=== PATIENT | male | born 1930 | race African-American/Black ===

== ENCOUNTER 2017-09-13 05:36 | Day surgery (SDC) | payer MEDICARE, BC ==
[~2017-09-13] VITALS: Ht 167.6 cm; Wt 59.4 kg
[~2017-09-13 05:36] MED LIST: ALLO100T PO; AMLO10TA4 PO; ASPI-1158 PO; ATOR80TA PO; BUPR100T4 PO; DOCU-138 PO; FERR256T PO; HYDR-4134 PO; LEUP22.52 IM; VALS320T2 PO
[2017-09-13 06:29] LABS: BASOPHILS % 1.2 % (0.0-2.0); EOSINOPHILS % 2.3 % (0.0-5.0); HEMOGLOBIN. 8.4 g/dL (14.0-18.0); MEAN CORPUSCULAR HEMOGLOBIN 25.6 pg (28.0-32.0); MEAN CORPUSCULAR VOLUME 79.2 fL (80.0-94.0); MEAN PLATELET VOLUME 8.1 fl (7.4-10.4); MONOCYTES % 11.9 % (2.0-8.0); NEUTROPHILS % 58.6 % (40.0-76.0); PLATELET 135 x1000/uL (130-400); RED BLOOD CELL COUNT 3.28 mill/uL (4.7-6.1); RED CELL DISTRIBUTION WIDTH 14.5 % (11.6-14.6)
[2017-09-13] MEDS ORDERED: SODIUM CHLORIDE 0.9% 1,000 ML IV SCH (06:30)
[2017-09-13 06:37] LABS: INR 1.1; PARTIAL THROMBOPLASTIN TIME 25.8 sec (23.4-31.0); PROTHROMBIN TIME 11.2 sec (9.4-11.6)
[2017-09-13 06:42] LABS: CLARITY URINE CLEAR (CLEAR); COLOR URINE YELLOW (YELLOW); KETONES URINE TRACE (NEGATIVE); LEUKOCYTE ESTERASE URINE 1+ (NEGATIVE); NITRITE URINE NEGATIVE (NEGATIVE); OCCULT BLOOD URINE NEGATIVE (NEGATIVE); PROTEIN URINE 2+ (NEGATIVE); SPECIFIC GRAVITY URINE 1.015 (1.005-1.030); UROBILINOGEN URINE 0.2 E.U./dL (0.2-1.0)
[2017-09-13] MEDS ORDERED: BUPIVACAINE HCL/PF 0.5% (5MG/ML) 10ML ONE (07:11)
[2017-09-13] MEDS ORDERED: SKIN ADHESIVE 0.7 GM EA TOP ONE (07:11)
[2017-09-13] MEDS ORDERED: DONE5TAB33 PO (07:27)
[2017-09-13] MEDS ORDERED: COLC0.6C3 PO (07:27)
[2017-09-13] MEDS ORDERED: ZINC50TA37 PO (07:27)
[2017-09-13] MEDS ORDERED: DOXA2TAB2 PO (07:27)
[2017-09-13] MEDS ORDERED: ATEN-42 PO (07:27)
[2017-09-13] MEDS ORDERED: MULT-1116 PO (07:27)
[2017-09-13] MEDS ORDERED: FEBU40TA PO (07:27)
[2017-09-13] MEDS ORDERED: LIDOCAINE HCL/PF 1% 10 MG/ML 5ML VIAL ONE (07:38)
[2017-09-13] MEDS ORDERED: GLYCOPYRROLATE 0.2 MG/ML 2ML VIAL ONE (07:38)
[2017-09-13] MEDS ORDERED: METOCLOPRAMIDE HCL 10MG/2ML VIAL ONE (07:38)
[2017-09-13] MEDS ORDERED: FENTANYL CITRATE/PF 50MCG/ML 2ML VIAL ONE (07:38)
[2017-09-13] MEDS ORDERED: MIDAZOLAM HCL 2 MG/2 ML VIAL ONE (07:38)
[2017-09-13] MEDS ORDERED: SUCCINYLCHOLINE CHLORIDE 200MG/10ML VIAL IV ONE (07:38)
[2017-09-13] MEDS ORDERED: ONDANSETRON HCL 4MG/2ML VIAL ONE (07:38)
[2017-09-13] MEDS ORDERED: PROPOFOL 200MG/20ML VIAL IV ONE (07:38)
[2017-09-13] MEDS ORDERED: PHENYLEPHRINE HCL 10 MG/ML 1ML (IV VIAL) IV ONE (07:39)
[2017-09-13] MEDS ORDERED: EPHEDRINE SULFATE 50MG/ML VIAL ONE (07:39)
[2017-09-13] MEDS ORDERED: SODIUM CHLORIDE 0.9% 1,000 ML IV ONE (08:03)
[2017-09-13] MEDS ORDERED: MEPERIDINE HCL/PF 25MG/ML CPJ IV PRN (08:15)
[2017-09-13] MEDS ORDERED: HYDROMORPHONE HCL/PF 2MG/ML CPJ IV PRN (08:15)
[2017-09-13] MEDS ORDERED: ONDANSETRON HCL 4MG/2ML VIAL IV PRN (08:15)
== END 2017-09-13 11:15 | disposition home or self-care (01) ==
LOC: OR 05:36
PROVIDERS: ATTEND Surgery
DX: K40.90 Unilateral inguinal hernia, without obstruction or gangrene, not specified as recurrent (principal); I12.0 Hypertensive chronic kidney disease with stage 5 chronic kidney disease or end stage renal disease; N18.6 End stage renal disease; E78.5 Hyperlipidemia, unspecified; R63.4 Abnormal weight loss; F32.9 Major depressive disorder, single episode, unspecified; I25.2 Old myocardial infarction; Z98.890 Other specified postprocedural states; Z85.46 Personal history of malignant neoplasm of prostate; Z95.1 Presence of aortocoronary bypass graft; Z79.899 Other long term (current) drug therapy
CPT/HCPCS: 36415; 49505; 80048; 81003; 85025; 85610; 85730; 87077; 87086; 87186; C1781; G0168; J0330; J2250; J2370; J2405; J2765; J3010; J3490; J7030; J2704